=== PATIENT | male | born 1990 | race Caucasian/White ===

== ENCOUNTER 2021-02-07 19:06 | Emergency (ER) | payer MEDICAID ==
[~2021-02-07] VITALS: Ht 185.4 cm; Wt 240.4 kg
[2021-02-07 21:11] LABS: BASOPHIL 0.4 % (0-2); EOSINOPHIL 0.1 % (0-5); HCT 42.3 % (42.0-52.0); HGB 14.1 g/dl (13.2-18.0); LYMPHOCYTE 10.5 % (15-48); MCH 29.6 pg (25.0-31.0); MCHC 33.3 g/dL (32.0-36.0); MCV 88.9 fL (78.0-100.0); MONOCYTE 7.3 % (0-12); MPV 9.9 fL (6.0-9.5); NEUTROPHIL 80.8 % (41-80); NRBC 0; PLT 407 K/uL (150-400); RBC 4.76 M/uL (4.70-6.00); RDW 12.5 % (11.5-14.0); WBC 13.9 K/uL (4.0-10.5)
[2021-02-07 21:48] LABS: ALBUMIN 2.7 g/dL (3.4-5.0); BILIRUBIN - TOTAL 0.8 mg/dL (0.2-1.0); BUN/CREAT RATIO (CALC) 9.4 RATIO; CREATININE 0.64 mg/dL (0.67-1.17); GLOBULIN (CALCULATION) 4.4 g/dL; MAGNESIUM 1.9 mg/dL (1.8-2.4); POTASSIUM 3.9 mmol/L (3.5-5.1); TOTAL PROTEIN 7.1 g/dL (6.4-8.2)
[2021-02-07 21:49] LABS: LACTIC ACID 1.6 mmol/L (0.4-1.9)
[2021-02-07 23:56] LABS: BILIRUBIN 1+ mg/dL (NEGATIVE); BLOOD 1+ Ery/uL (NEGATIVE); CLARITY CLEAR (CLEAR); COLOR YELLOW (YELLOW); GLUCOSE (U) 3+ mg/dL (NORMAL); LEUKOCYTES TRACE Leu/uL (NEGATIVE); NITRITE NEGATIVE (NEGATIVE); PROTEIN 1+ mg/dL (NEGATIVE); SPECIFIC GRAVITY 1.025 (1.001-1.030)
[2021-02-08 00:01] LABS: AMPHETAMINES NEGATIVE (NEGATIVE); BARBITURATES NEGATIVE (NEGATIVE); ECSTASY (MDMA) NEGATIVE (NEGATIVE); MARIJUANA (THC) NEGATIVE (NEGATIVE); METHADONE NEGATIVE (NEGATIVE); OPIATES NEGATIVE (NEGATIVE); OXYCODONE NEGATIVE (NEGATIVE)
[2021-02-08 00:09] LABS: BACTERIA 2+
[2021-02-08 00:10] LABS: YEAST PRESENT
[2021-02-09 08:38] LABS: EOSINOPHIL 0.6 % (0-5); HGB 12.8 g/dl (13.2-18.0); LYMPHOCYTE 17.2 % (15-48); MCH 29.6 pg (25.0-31.0); MCHC 32.8 g/dL (32.0-36.0); MCV 90.1 fL (78.0-100.0); MONOCYTE 6.9 % (0-12); MPV 9.8 fL (6.0-9.5); NEUTROPHIL 73.3 % (41-80); NRBC 0; PLT 361 K/uL (150-400); RBC 4.33 M/uL (4.70-6.00); RDW 12.5 % (11.5-14.0); WBC 9.3 K/uL (4.0-10.5)
[2021-02-09 09:08] LABS: BUN/CREAT RATIO (CALC) 13.1 RATIO; CREATININE 1.22 mg/dL (0.67-1.17); POTASSIUM 3.2 mmol/L (3.5-5.1); VANCOMYCIN, TROUGH 30.4 ug/mL (10-20)
== END 2021-02-09 21:17 | disposition other institution (70) ==
LOC: FER 19:06
PROVIDERS: Emergency Medicine; Hospitalist; Internal Medicine
DX: L02.215 Cutaneous abscess of perineum (principal); Z20.822 Contact with and (suspected) exposure to COVID-19
CPT/HCPCS: 36415; 80048; 80053; 80202; 80305; 81001; 82728; 83605; 83735; 84145; 85025; 87040; 93005; 96372; J1170; J1650; J2405; J2543; J3370; J7030; J7040; J7050; U0002